=== PATIENT | male | born 1960 | race Caucasian/White ===

== ENCOUNTER 2019-10-09 11:25 | Day surgery (SDC) | payer OTHER ==
[~2019-10-09] VITALS: Ht 172.7 cm; Wt 85.2 kg
[~2019-10-09 11:25] MED LIST: PANT40TA3 PO; SIMV40TA PO
[2019-10-09 11:55] VITALS: BP 158/95
[2019-10-09] MEDS ORDERED: LACTATED RINGERS 1,000 ML IV SCH (11:57)
[2019-10-09] MEDS ORDERED: CHLORHEXIDINE 15 ML UDC MM ONE (12:00)
[2019-10-09] MEDS ORDERED: FENTANYL PF 100 MCG/2ML IV PRN (12:30)
[2019-10-09] MEDS ORDERED: LABETALOL 5MG/ML, 20ML IV PRN (12:30)
[2019-10-09] MEDS ORDERED: DIPHENHYDRAMINE 50 MG/ML, 1ML IVPush PRN (12:30)
[2019-10-09] MEDS ORDERED: HYDROcodone/APAP 7.5-325MG/15ML UDC PO PRN (12:30)
[2019-10-09] MEDS ORDERED: PROMETHAZINE 25 MG/ML, 1ML IVPush PRN (12:30)
[2019-10-09] MEDS ORDERED: HYDROmorphone 1 MG/ML, 1ML INJ IVPush PRN (12:30)
[2019-10-09] MEDS ORDERED: MEPERIDINE/PF 25MG/0.5ML IVPush PRN (12:30)
[2019-10-09] MEDS ORDERED: HALOPERIDOL 5 MG/ML IV PRN (12:30)
[2019-10-09] MEDS ORDERED: hydrALAzine 20 MG/ML, 1ML IV PRN (12:30)
[2019-10-09] MEDS ORDERED: FENTANYL PF 250 MCG/5ML ONE (12:31)
[2019-10-09] MEDS ORDERED: MIDAZOLAM 1 MG/ML, 2ML ONE (12:31)
[2019-10-09] MEDS ORDERED: OMNIPAQUE 350 MG/ML, 50 ML BOTTLE INJ ONE (13:14)
[2019-10-09] MEDS ORDERED: PROPOFOL 10 MG/ML, 20ML ONE (13:55)
[2019-10-09] MEDS ORDERED: ONDANSETRON 2MG/ML, 2ML ONE (13:55)
[2019-10-09] MEDS ORDERED: CEFAZOLIN 1,000 MG ONE (13:55)
[2019-10-09] MEDS ORDERED: DEXAMETHASONE 4 MG/ML, 1ML ONE (13:55)
[2019-10-09] MEDS ORDERED: OMNIPAQUE 350 MG/ML, 50 ML BOTTLE ONE (14:01)
[2019-10-09] MEDS ORDERED: PHENAZOPYRIDINE 200 MG TABLET ONE (14:21)
[2019-10-09] MEDS ORDERED: PHENAZOPYRIDINE 200 MG TABLET PO ONE (14:30)
== END 2019-10-09 16:30 | disposition home or self-care (01) ==
LOC: OUT 11:25
PROVIDERS: ATTEND Urology
DX: N20.2 Calculus of kidney with calculus of ureter (principal); Z11.59 Encounter for screening for other viral diseases; E78.5 Hyperlipidemia, unspecified; Z79.899 Other long term (current) drug therapy
CPT/HCPCS: 36415; 52356; 74420; 82360; 87635; 88300; C1726; C2617; J0690; J1100; J2250; J2405; J2704; J3010; J7120; Q9967